=== PATIENT | male | born 1990 | race Caucasian/White ===

== ENCOUNTER 2017-07-26 11:48 | Emergency (ER) | payer MEDICAID ==
[2017-07-26] MEDS ORDERED: IBUPROFEN 600 MG TABLET PO ONE (11:59)
--- NOTE | 2017-07-26 12:04 | Emergency Department Record ---
History of Present Illness - General Chief complaint: Extremity Problem Stated complaint: LEFT WRIST INJURY Time Seen by Provider: 07/26/17 11:59 Source: Patient Mode of Arrival: Ambulatory Limitations: No limitations - History of Present Illness Initial comments: 27 yo male presents with left wrist pain since last night, He was riding his skate board and hit a rock. He fell off his skateboard and landed on his left wrist. No abrasions or laceration. He has left ulnar side wrist pain. No deformity. No history of prior left wrist fracture. He is right handed. MD Complaint: Extremity pain, Joint pain -: Days(s) (1) Location: Left History of Same: Yes -: Yes Arthralgia Radiation: Distal Quality: Aching Consistency: Constant Improves with: Immobilization Worsens with: Palpation, Weight bearing Associated Symptoms: Denies other symptoms - Related Data Home Medications Medication Instructions Recorded Confirmed Last Taken No Home Med [NO HOME MEDS] 07/26/17 07/26/17 Unknown Allergies Allergy/AdvReac Type Severity Reaction Status Date / Time morphine Allergy RASH Verified 06/14/16 17:09 ibuprofen AdvReac NAUSEA Verified 06/14/16 17:09 Review of Systems Constitutional: Denies: Chills, Fever, Malaise, Weakness Eyes: Denies: Eye discharge ENT: Denies: Congestion, Throat pain Respiratory: Denies: Cough Cardiovascular: Denies: Chest pain, Syncope Endocrine: Denies: Fatigue Gastrointestinal: Denies: Abdominal pain, Diarrhea, Nausea, Vomiting Genitourinary: Denies: Dysuria, Frequency Musculoskeletal: Reports: As per HPI, Arthralgia, Joint swelling, Myalgia. Denies: Back pain, Neck pain Skin: Denies: Bruising, Change in color, Rash Neurological: Denies: Confusion, Headache, Numbness, Vertigo, Weakness Psychiatric: Denies: Anxiety Hematological/Lymphatic: Denies: Blood Clots, Easy bleeding, Easy bruising, Swollen glands Past Medical History - SOCIAL HISTORY Smoking Status: Current every day smoker Drug Use Detail:: Marijuana - RESPIRATORY Hx Respiratory Disorders: No - CARDIOVASCULAR Hx Cardio Disorders: No - NEURO Hx Neuro Disorders: No - GI Hx GI Disorders: No - Hx Genitourinary Disorders: No - ENDOCRINE Hx Endocrine Disorders: No - MUSCULOSKELETAL Hx Musculoskeletal Disorders: No - PSYCH Hx Psych Problems: Yes Hx Anxiety: Yes Hx Depression: Yes - HEMATOLOGY/ONCOLOGY Hx Hematology/Oncology Disorders: No Family Medical History Hx Cancer: Father Hx Stroke: Mother Physical Exam - General General Appearance: Alert, Oriented x3, Cooperative, No acute distress Limitations: No limitations - Head Head exam: Atraumatic, Normocephalic, Normal inspection - Eye Eye exam: Normal appearance. negative: Conjunctival injection, Scleral icterus - ENT ENT exam: Normal exam, Mucous membranes moist Ear exam: Normal external inspection Nasal Exam: Normal inspection Mouth exam: Normal external inspection - Neck Neck exam: Normal inspection, Full ROM. negative: Tenderness - Respiratory Respiratory exam: Normal lung sounds bilaterally. negative: Respiratory distress - Cardiovascular Cardiovascular Exam: Regular rate, Normal rhythm, Normal heart sounds Peripheral Pulses: 2+: Radial (L) - Rectal Rectal exam: Deferred - exam: Deferred - Extremities Extremities exam: Normal inspection, Full ROM, Normal capillary refill, Tenderness Image of Hand: 1 - tender ulnar side, no swelling, no warmth, no redness, no abrasion - Back Back exam: Reports: Full ROM. Denies: CVA tenderness (R), CVA tenderness (L), Muscle spasm, Tenderness - Neurological Neurological exam: Alert, Normal gait, Oriented X3, Reflexes normal - Psychiatric Psychiatric exam: Normal affect, Normal mood. negative: Agitated, Anxious - Skin Skin exam: Dry, Intact, Normal color, Warm Course - Reevaluation(s) Reevaluation #1: 07/26/17 12:03 XR ordered of the left wrist 07/26/17 12:22 The XR was reviewed No visible displaced fracture or dislocation The patient was placed in a wrist splint He was given instructions of RICE We discussed follow up and reasons to return Disposition Disposition: Discharge Clinical Impression: Left wrist sprain Qualifiers: Encounter type: initial encounter Qualified Code(s): S63.502A - Unspecified sprain of left wrist, initial encounter Disposition: Home, Self-Care Condition: (1) Good Instructions: Wrist Sprain (ED) Additional Instructions: Ice and elevate to minimize swelling Use the splint for support and comfort Follow up in the next one week if any pain persists Forms: Patient Portal Access Time of Disposition: 12:23 Quality - Quality Measures Quality Measures: N/A - Blood Pressure Screening Does Patient Have Any of the Following: No Blood Pressure Classification: Pre-Hypertensive BP Reading Systolic Measurement: 131 Diastolic Measurement: 81 Screening for High Blood Pressure: < Pre-Hypertensive BP, F/U Documented > [ G8950] Pre-Hypertensive Follow-up Interventions: Referral to alternative/primary care provider.
--- NOTE | 2017-07-27 07:54 | RADIOLOGY REPORT ---
EXAM: LEFT WRIST HISTORY: INJURY. TECHNIQUE: Three views of the left wrist were performed. FINDINGS: No evidence of fracture or dislocation. No lytic or blastic lesion. IMPRESSION: NEGATIVE LEFT WRIST EXAMINATION. [facility]OB [facility]BER: [id number] [facility]
== END 2017-07-26 12:35 | disposition home or self-care (01) ==
LOC: ER 11:48
DX: S63.502A Unspecified sprain of left wrist, initial encounter (principal); V00.131A Fall from skateboard, initial encounter
CPT/HCPCS: 99283

== ENCOUNTER 2018-04-03 18:48 | Emergency (ER) | payer MEDICAID ==
--- NOTE | 2018-04-03 19:04 | Emergency Department Record ---
History of Present Illness - General Stated Complaint: RIB INJURY Time Seen by Provider: 04/03/18 19:00 Source: Patient Mode of Arrival: Ambulatory Limitations: No limitations - History of Present Illness Initial comments: 27 yo male presents to ED for evaluation of pain to the right anterior lower ribs following injury approximately 4 weeks ago that occurred while wrestling with a friend. Patient reports swelling and discomfort to that area that has persisted, denies shortness of breath or health problems at his baseline. Onset/Timin -: Week(s) Location: Right, Chest Radiation: Non-Radiating Quality: Aching Consistency: Constant Improves with: None Worsens with: Movement, Other (palpation) Associated Symptoms: Denies other symptoms Treatments Prior to Arrival: None - Felicity Coma Scale Eye Response: (4) Open spontaneously Motor Response: (6) Obeys commands Verbal Response: (5) Oriented Felicity Total: 15 - Related Data Allergies Allergy/AdvReac Type Severity Reaction Status Date / Time morphine Allergy RASH Verified 04/03/18 19:11 ibuprofen AdvReac NAUSEA Verified 04/03/18 19:11 Review of Systems Constitutional: Denies: Chills, Fever, Malaise, Night sweats Eyes: Denies: Eye discharge, Eye pain ENT: Denies: Congestion, Ear pain, Epistaxis Respiratory: Denies: Cough, Dyspnea, Hemoptysis Cardiovascular: Reports: Chest pain (right anterior rib pain). Denies: Dyspnea on exertion Endocrine: Denies: Fatigue, Heat or cold intolerance Gastrointestinal: Denies: Abdominal pain, Nausea, Vomiting Genitourinary: Denies: Testicular pain, Testicular mass Musculoskeletal: Denies: Arthralgia, Back pain, Gout, Joint swelling Skin: Denies: Bruising, Change in color Neurological: Denies: Abnormal gait, Confusion, Headache Psychiatric: Denies: Anxiety Hematological/Lymphatic: Denies: Anemia, Blood Clots Past Medical History - SOCIAL HISTORY Smoking Status: Current every day smoker Drug Use Detail:: Marijuana - RESPIRATORY Hx Respiratory Disorders: No - CARDIOVASCULAR Hx Cardio Disorders: No - NEURO Hx Neuro Disorders: No - GI Hx GI Disorders: No - Hx Genitourinary Disorders: No - ENDOCRINE Hx Endocrine Disorders: No - MUSCULOSKELETAL Hx Musculoskeletal Disorders: No - PSYCH Hx Psych Problems: Yes Hx Anxiety: Yes Hx Depression: Yes - HEMATOLOGY/ONCOLOGY Hx Hematology/Oncology Disorders: No Family Medical History Hx Cancer: Father Hx Stroke: Mother Physical Exam - General General Appearance: Alert, Oriented x3, Cooperative, Mild distress Limitations: No limitations - Head Head exam: Atraumatic, Normocephalic, Normal inspection Head exam detail: negative: Abrasion, Contusion, Bobo's sign, General tenderness, Hematoma, Laceration - Eye Eye exam: Normal appearance. negative: Conjunctival injection, Periorbital swelling, Periorbital tenderness, Scleral icterus - ENT Ear exam: negative: Auricular hematoma, Auricular trauma Nasal Exam: negative: Active bleeding, Discharge, Dried blood, Foreign body Mouth exam: negative: Drooling, Laceration, Muffled voice, Tongue elevation - Neck Neck exam: Normal inspection. negative: Meningismus, Tenderness - Respiratory Respiratory exam: Normal lung sounds bilaterally, Chest wall tenderness (TTP over the right anterior lower ribs (11/12 region) with mild STS present). negative: Decreased breath sounds, Rhonchi, Stridor, Wheezes - Cardiovascular Cardiovascular Exam: Regular rate, Normal rhythm, Normal heart sounds - GI/Abdominal GI/Abdominal exam: Soft. negative: Rebound, Rigid, Tenderness - Rectal Rectal exam: Deferred - exam: Deferred - Extremities Extremities exam: Normal inspection. negative: Calf tenderness, Pedal edema, Tenderness - Back Back exam: Denies: CVA tenderness (R), CVA tenderness (L) - Neurological Neurological exam: Alert, Normal gait, Oriented X3 - Psychiatric Psychiatric exam: Normal affect, Normal mood - Skin Skin exam: Normal color. negative: Abrasion Type of lesion: negative: abrasion Course Vital Signs 04/03/18 18:55 Temperature 98.7 F Pulse Rate [ 76 Pulse Ox Probe] Respiratory 15 Rate Blood Pressure 136/88 [Left Arm] Pulse Ox 98 - Reevaluation(s) Reevaluation #1: 04/03/18 20:23 Ribs/CXR: Calcification of the 8th rib at the costochondral junction May related to healing fracture Patient was updated on his result, recommended continued symptomatic care at home as directed. Patient verbalizes understanding of all instructions and appears stable for discharge at this time. Disposition Disposition: Discharge Clinical Impression: Contusion of rib on right side Qualifiers: Encounter type: initial encounter Qualified Code(s): S20.211A - Contusion of right front wall of thorax, initial encounter Rib fracture Qualifiers: Encounter type: initial encounter Rib fracture type: single rib Fracture type: closed Laterality: right Qualified Code(s): S22.31XA - Fracture of one rib, right side, initial encounter for closed fracture Disposition: Home, Self-Care Condition: (2) Stable Instructions: Rib Contusion (ED) Additional Instructions: Return to ED if your symptoms worsen or if you have any concerns. Ibuprofen as directed. Follow-up with your family doctor in 5-7 days for further evaluation. Time of Disposition: 20:24 Quality - Quality Measures Quality Measures: N/A - Blood Pressure Screening Does Patient Have Any of the Following: No Blood Pressure Classification: Pre-Hypertensive BP Reading Systolic Measurement: 136 Diastolic Measurement: 88 Screening for High Blood Pressure: < Pre-Hypertensive BP, F/U Documented > [ G8950] Pre-Hypertensive Follow-up Interventions: Referral to alternative/primary care provider.
--- NOTE | 2018-04-05 08:37 | RADIOLOGY REPORT ---
EXAM: RIGHT RIBS WITH PA CHEST HISTORY: PAINFUL LUMP IN THE ANTERIOR LOWER RIGHT RIB REGION POST TRAUMA ONE MONTH AGO. TECHNIQUE: AP and oblique views of the right ribs are obtained as well as an upright PA view of the chest. Comparison: None. FINDINGS: There is normal bone mineralization. No definite acute right rib fracture is seen though there is calcific density projecting lateral to the right eighth costochondral junction which appears somewhat irregular. There is mild overlying smooth soft tissue deformity. This may relate to healing of costochondral junction injury. No other osseous abnormality identified. The cardiomediastinal silhouette is normal in size and configuration. The pulmonary vasculature is nondilated. The lungs and pleural spaces are clear. IMPRESSION: 1. NO DEFINITE ACUTE RIGHT RIB FRACTURE IDENTIFIED. 2. ILL DEFINED CALCIFIC DENSITY NOTED LATERAL TO THE RIGHT EIGHTH COSTOCHONDRAL JUNCTION WITH SLIGHT DEFORMITY OF THE OVERLYING SOFT TISSUE. THIS MAY RELATE TO HEALING OF COSTOCHONDRAL JUNCTION INJURY. A NEOPLASTIC PROCESS IS LESS LIKELY. NO EVIDENCE OF ACUTE CARDIOPULMONARY DISEASE. JOB NUMBER: [id number] AND [id number] [facility]
== END 2018-04-03 20:28 | disposition home or self-care (01) ==
LOC: ER 18:48
DX: S22.31XA Fracture of one rib, right side, initial encounter for closed fracture (principal); S20.211A Contusion of right front wall of thorax, initial encounter; Y93.72 Activity, wrestling; F17.210 Nicotine dependence, cigarettes, uncomplicated
CPT/HCPCS: 99283

== ENCOUNTER 2018-07-19 22:16 | Emergency (ER) | payer MEDICAID ==
--- NOTE | 2018-07-19 22:39 | Emergency Department Record ---
History of Present Illness - General Chief complaint: Dental Stated complaint: DENTAL PAIN Time Seen by Provider: 07/19/18 22:34 Source: Patient Mode of Arrival: Ambulatory Limitations: No limitations - History of Present Illness Initial comments: 28 yo male presents to ED for evaluation of dental pain to the upper posterior dental region. Patient reports that his dentist "broke the affected tooth off" while attempting to remove an adjacent tooth recently. Patient reports pain symptoms and inability to sleep, reports he has been taking Tylenol as needed without improvement. Patient denies health problems at his baseline. MD complaint: Tooth pain Onset/Timin -: Days(s) Location: Tooth # 1 - dental pain, swelling Severity: Severe Quality: Aching Consistency: Constant Improves with: None Worsens with: None Context-Epistaxis: History of similar Context- Dental: History of dental caries - Related Data Previous Rx's Medication Instructions Recorded Penicillin V Potassium 500 mg PO QID #28 tablet 07/19/18 Allergies Allergy/AdvReac Type Severity Reaction Status Date / Time morphine Allergy RASH Verified 04/03/18 19:11 ibuprofen AdvReac NAUSEA Verified 04/03/18 19:11 Review of Systems Constitutional: Denies: Chills, Fever, Malaise, Night sweats Eyes: Denies: Eye discharge, Eye pain ENT: Reports: Dental pain. Denies: Ear pain, Epistaxis Respiratory: Denies: Cough, Dyspnea Cardiovascular: Denies: Chest pain, Dyspnea on exertion Endocrine: Denies: Fatigue, Heat or cold intolerance Gastrointestinal: Denies: Abdominal pain, Nausea, Vomiting Genitourinary: Denies: Incontinence, Retention Musculoskeletal: Denies: Arthralgia, Back pain, Gout, Joint swelling Skin: Denies: Bruising, Change in color Neurological: Reports: Headache (From his tooth). Denies: Abnormal gait, Confusion, Seizure Psychiatric: Denies: Anxiety Hematological/Lymphatic: Denies: Anemia, Blood Clots Past Medical History - SOCIAL HISTORY Smoking Status: Current every day smoker Drug Use Detail:: Marijuana - RESPIRATORY Hx Respiratory Disorders: No - CARDIOVASCULAR Hx Cardio Disorders: No - NEURO Hx Neuro Disorders: No - GI Hx GI Disorders: No - Hx Genitourinary Disorders: No - ENDOCRINE Hx Endocrine Disorders: No - MUSCULOSKELETAL Hx Musculoskeletal Disorders: No - PSYCH Hx Psych Problems: Yes Hx Anxiety: Yes Hx Depression: Yes - HEMATOLOGY/ONCOLOGY Hx Hematology/Oncology Disorders: No Family Medical History Hx Cancer: Father Hx Stroke: Mother Physical Exam - General General Appearance: Alert, Oriented x3, Cooperative, Moderate distress Limitations: No limitations - Head Head exam: Atraumatic, Normocephalic, Normal inspection Head exam detail: negative: Abrasion, Contusion, Bobo's sign, General tenderness, Hematoma, Laceration - Eye Eye exam: Normal appearance. negative: Conjunctival injection, Periorbital swelling, Periorbital tenderness, Scleral icterus - ENT Ear exam: negative: Auricular hematoma, Auricular trauma Nasal Exam: negative: Active bleeding, Discharge, Dried blood, Foreign body Mouth exam: negative: Drooling, Laceration, Muffled voice, Tongue elevation Teeth exam: Dental caries, Dental tenderness #. negative: Gingival enlargement Throat exam: negative: Tonsillar erythema, Tonsillomegaly, R peritonsillar mass , L peritonsillar mass Image of Mouth/Teeth: 1 - Dental caries with gingival STS - Neck Neck exam: Normal inspection. negative: Meningismus, Tenderness - Respiratory Respiratory exam: Normal lung sounds bilaterally. negative: Rales, Respiratory distress, Rhonchi, Stridor - Cardiovascular Cardiovascular Exam: Regular rate, Normal rhythm, Normal heart sounds - GI/Abdominal GI/Abdominal exam: Soft. negative: Rebound, Rigid, Tenderness - Rectal Rectal exam: Deferred - exam: Deferred - Extremities Extremities exam: Normal inspection. negative: Calf tenderness, Pedal edema, Tenderness - Back Back exam: Denies: CVA tenderness (R), CVA tenderness (L) - Neurological Neurological exam: Alert, Normal gait, Oriented X3 - Psychiatric Psychiatric exam: Normal affect, Normal mood - Skin Skin exam: Normal color. negative: Abrasion Type of lesion: negative: abrasion Course Vital Signs 07/19/18 22:28 Temperature 98.6 F Pulse Rate [ 91 H Pulse Ox Probe] Respiratory 20 Rate Blood Pressure 160/109 [Left Arm] Pulse Ox 98 - Reevaluation(s) Reevaluation #1: 07/19/18 23:04 Procedure Note: 1.0 cm gingival abscess affecting the left upper gingival region was anesthetized with 1.5 mL of 0.25% sensorcaine with good anesthesia. The lesion was then incised with a #11 blade with moderate amount of purulent drainage removed. Patient tolerated the procedure well without complications. Pain symptoms are greatly improved following dental block and I&D. Patient was started on Penicillin VK with instructions for dental follow-up. Procedures - Nerve Block Consent Obtained: Verbal consent Time Out Performed: Yes Local Anesthetic Used: Marcaine 0.25% Side: Right Intraoral Nerve Block: Superior alveolar Procedure Successful: Yes Complications: None Patient Tolerated Procedure: Good Disposition Disposition: Discharge Clinical Impression: Dental caries, Gingival abscess Disposition: Home, Self-Care Condition: (2) Stable Instructions: Dental Abscess (ED) Additional Instructions: Return to ED if your symptoms worsen or if you have any concerns. Penicillin VK as directed. Follow-up with your dentist in 3-5 days as directed. Prescriptions: Penicillin V Potassium 500 mg PO QID #28 tablet Forms: Patient Portal Access Time of Disposition: 22:39 Quality - Quality Measures Quality Measures: N/A - Blood Pressure Screening Does Patient Have Any of the Following: No Blood Pressure Classification: Hypertensive Reading Systolic Measurement: 160 Diastolic Measurement: 109 Screening for High Blood Pressure: < First Hypertensive BP, F/U Documented > [ G8950] First Hypertensive Follow-up Interventions: Referral to alternative/primary care provider.
[2018-07-19] MEDS ORDERED: PENICILLIN V POTASSIUM 250 MG TAB PO ONE (23:04)
[2018-07-19] MEDS ORDERED: HYDROCODONE/APAP 10/325 TABLET PO ONE (23:11)
== END 2018-07-19 23:16 | disposition home or self-care (01) ==
LOC: ER 22:16
DX: K05.219 Aggressive periodontitis, localized, unspecified severity (principal); K02.9 Dental caries, unspecified; F17.210 Nicotine dependence, cigarettes, uncomplicated
CPT/HCPCS: 99284 ×2; 41800; J3490

== ENCOUNTER 2018-08-24 08:19 | Emergency (ER) | payer MEDICAID ==
--- NOTE | 2018-08-24 08:39 | Emergency Department Record ---
History of Present Illness - General Chief complaint: Dental Stated complaint: RT SIDE FACE SWOLLEN Time Seen by Provider: 08/24/18 08:28 Source: Patient Mode of Arrival: Ambulatory - History of Present Illness Initial comments: swollen upper face area and painful last molar and second to the last molar and couple months ago had a tooth ache and last time to [facility] more than 6 months ago and he had toothache 2 months ago but never followed up with the dentist. MD complaint: Tooth pain Onset/Timin -: Days(s) Severity: Moderate Severity scale (1-10): 8 Quality: Aching Consistency: Constant - Related Data Previous Rx's Medication Instructions Recorded Cephalexin [Keflex] 500 mg PO QID #40 cap 08/24/18 Naproxen [Naprosyn] 500 mg PO BID #20 tablet 08/24/18 Allergies Allergy/AdvReac Type Severity Reaction Status Date / Time morphine Allergy RASH Verified 08/24/18 08:28 ibuprofen AdvReac NAUSEA Verified 08/24/18 08:28 Travel Screening - Travel/Exposure Within Last 30 Days Have you traveled within the last 30 days?: No - Travel/Exposure Within Last Year Have you traveled outside the [place] in the last year?: No - Additonal Travel Details Have you been exposed to anyone with a communicable illness?: No - Travel Symptoms Symptom Screening: None Review of Systems Reviewed: No additional complaints except as noted below Constitutional: Reports: As per HPI. Denies: Chills, Fever, Malaise, Night sweats, Weakness, Weight change Eyes: Reports: As per HPI. Denies: Eye discharge, Eye pain, Photophobia, Vision change ENT: Reports: As per HPI, Dental pain, Other (swelling). Denies: Congestion, Ear pain, Epistaxis, Hearing loss, Throat pain Respiratory: Reports: As per HPI. Denies: Cough, Dyspnea, Hemoptysis, Stridor, Wheezes Cardiovascular: Reports: As per HPI. Denies: Arrhythmia, Chest pain, Dyspnea on exertion, Edema, Murmurs, Orthopnea, Palpitations, Paroxysmal nocturnal dyspnea, Rheumatic Fever, Syncope Endocrine: Reports: As per HPI. Denies: Fatigue, Heat or cold intolerance, Polydipsia, Polyuria Gastrointestinal: Reports: As per HPI. Denies: Abdominal pain, Constipation, Diarrhea, Hematemesis, Hematochezia, Melena, Nausea, Vomiting Genitourinary: Reports: As per HPI. Denies: Dysuria, Frequency, Hematuria, Incontinence, Retention, Testicular pain, Testicular mass, Urgency Musculoskeletal: Reports: As per HPI. Denies: Arthralgia, Back pain, Gout, Joint swelling, Myalgia, Neck pain Skin: Reports: As per HPI. Denies: Bruising, Change in color, Change in hair/ nails, Lesions, Pruritus, Rash Neurological: Reports: As per HPI. Denies: Abnormal gait, Confusion, Headache, Numbness, Paresthesias, Seizure, Tingling, Tremors, Vertigo, Weakness Psychiatric: Reports: As per HPI. Denies: Anxiety, Auditory hallucinations, Depression, Homicidal thoughts, Suicidal thoughts, Visual hallucinations Hematological/Lymphatic: Reports: As per HPI. Denies: Anemia, Blood Clots, Easy bleeding, Easy bruising, Swollen glands Past Medical History - SOCIAL HISTORY Smoking Status: Current every day smoker Alcohol Use: Rare, Occasional Drug Use: Rare, Occasional Drug Use Detail:: Marijuana - RESPIRATORY Hx Respiratory Disorders: No - CARDIOVASCULAR Hx Cardio Disorders: No - NEURO Hx Neuro Disorders: No - GI Hx GI Disorders: No - Hx Genitourinary Disorders: No - ENDOCRINE Hx Endocrine Disorders: No - MUSCULOSKELETAL Hx Musculoskeletal Disorders: No - PSYCH Hx Psych Problems: Yes Hx Anxiety: Yes Hx Depression: Yes - HEMATOLOGY/ONCOLOGY Hx Hematology/Oncology Disorders: No Family Medical History Any Significant Family History?: Yes Hx Cancer: Father Hx Stroke: Mother Physical Exam - General General Appearance: Alert, Oriented x3, Cooperative, No acute distress - Head Head exam: Other (swelling right cheek area) - Eye Eye exam: Normal appearance, PERRL Pupils: Normal accommodation - ENT ENT exam: Normal exam, Mucous membranes moist, Normal external ear exam, Normal orophraynx, TM's normal bilaterally Ear exam: Normal external inspection. negative: External canal tenderness Nasal Exam: Normal inspection. negative: Discharge, Sinus tenderness Mouth exam: Normal external inspection, Tongue normal Teeth exam: Dental caries, Dental tenderness #, Other (swelling right cheek) Throat exam: Normal inspection. negative: Tonsillar erythema, Tonsillar exudate Image of Mouth/Teeth: 1 - pain 2 - pain 3 - tooth pain - Neck Neck exam: Normal inspection, Full ROM. negative: Tenderness - Respiratory Respiratory exam: Normal lung sounds bilaterally. negative: Respiratory distress - Cardiovascular Cardiovascular Exam: Regular rate, Normal rhythm, Normal heart sounds - GI/Abdominal GI/Abdominal exam: Soft, Normal bowel sounds. negative: Tenderness - Rectal Rectal exam: Deferred - exam: Deferred - Extremities Extremities exam: Normal inspection, Full ROM, Normal capillary refill. negative: Tenderness - Back Back exam: Reports: Normal inspection, Full ROM. Denies: Muscle spasm, Rash noted, Tenderness - Neurological Neurological exam: Alert, Normal gait, Oriented X3, Reflexes normal - Psychiatric Psychiatric exam: Normal affect, Normal mood - Skin Skin exam: Dry, Intact, Normal color, Warm Course Vital Signs 08/24/18 08:24 Temperature 98.6 F Pulse Rate 100 H Respiratory 20 Rate Blood Pressure 152/89 Pulse Ox 98 - Reevaluation(s) Reevaluation #1: no pointing or infection on gum and last molar with decay and looks broken. 2nd to last molar with repairs and pain on percussion and pain on both last molars right upper teeth 08/24/18 08:47 Disposition Clinical Impression: Dental infection, Dental caries Condition: (1) Good Instructions: Dental Abscess (ED), Toothache (ED) Additional Instructions: follow up with dentist in 1-5 days warm water rinses of mouth ten times a day Prescriptions: Cephalexin [Keflex] 500 mg PO QID #40 cap Naproxen [Naprosyn] 500 mg PO BID #20 tablet Forms: Patient Portal Access Time of Disposition: 09:04 Quality - Quality Measures Quality Measures: N/A - Blood Pressure Screening Does Patient Have Any of the Following: No Blood Pressure Classification: Pre-Hypertensive BP Reading Systolic Measurement: 152 Diastolic Measurement: 89 Screening for High Blood Pressure: < Pre-Hypertensive BP, F/U Documented > [ G8950] Pre-Hypertensive Follow-up Interventions: Referral to alternative/primary care provider.
[2018-08-24] MEDS ORDERED: CEFTRIAXONE 250 MG VIAL IM ONE (08:41)
[2018-08-24] MEDS ORDERED: CEFTRIAXONE SODIUM 1 GM in 0.9 % SODIUM CHLORIDE 100ML 100 ML IVPB ONE (08:42)
[2018-08-24] MEDS ORDERED: CEFTRIAXONE SODIUM 2 GM in 0.9 % SODIUM CHLORIDE 100ML 100 ML IVPB ONE (09:02)
[2018-08-24] MEDS ORDERED: CEPHALEXIN 500 MG CAPSULE PO STA (09:43)
== END 2018-08-24 09:53 | disposition home or self-care (01) ==
LOC: ER 08:19
DX: K04.7 Periapical abscess without sinus (principal); K02.9 Dental caries, unspecified; R22.0 Localized swelling, mass and lump, head; F17.210 Nicotine dependence, cigarettes, uncomplicated
CPT/HCPCS: 96365; 99284

== ENCOUNTER 2019-07-03 05:11 | Emergency (ER) | payer MEDICAID ==
--- NOTE | 2019-07-03 05:24 | Emergency Department Record ---
History of Present Illness - General Chief Complaint: Chest Pain Stated Complaint: CHEST PAIN Time Seen by Provider: 07/03/19 05:12 Source: Patient Mode of Arrival: Ambulatory Limitations: No limitations - History of Present Illness Initial Comments: 29 yo male presents to ED for evaluation of chest pain that he awoke with 90 minutes ago. Patient reports that he felt fine when he went to bed last evening, denies fevers, chills, or cough symptoms. Patient reports pain with laying supine, also reports a history of marijuana use. Patient denies previous heart or lung problems at his baseline. MD Complaint: Chest pain Onset/Timin -: Minutes(s) Onset: Awoke with symptoms Pain Location: Substernal Pain Radiation: RUE Severity scale (1-10): 5 Quality: Other Consistency: Intermittent Improves With: Nothing Worsens With: Supine - Related Data Previous Rx's Medication Instructions Recorded Ibuprofen [Motrin] 800 mg PO Q6H PRN #30 tab 07/03/19 Allergies Allergy/AdvReac Type Severity Reaction Status Date / Time morphine Allergy RASH Verified 08/24/18 08:28 ibuprofen AdvReac NAUSEA Verified 08/24/18 08:28 Travel Screening - Travel/Exposure Within Last 30 Days Have you traveled within the last 30 days?: No - Travel/Exposure Within Last Year Have you traveled outside the [place] in the last year?: No - Additonal Travel Details Have you been exposed to anyone with a communicable illness?: No - Travel Symptoms Symptom Screening: None Review of Systems Constitutional: Denies: Chills, Fever, Malaise, Night sweats Eyes: Denies: Eye discharge, Eye pain ENT: Denies: Congestion, Ear pain, Epistaxis Respiratory: Denies: Cough, Dyspnea Cardiovascular: Reports: Chest pain. Denies: Dyspnea on exertion Endocrine: Denies: Fatigue, Heat or cold intolerance Gastrointestinal: Denies: Abdominal pain, Nausea, Vomiting Genitourinary: Denies: Incontinence, Retention Skin: Denies: Bruising, Change in color Neurological: Denies: Abnormal gait, Confusion, Headache, Seizure Psychiatric: Denies: Anxiety Hematological/Lymphatic: Denies: Anemia, Blood Clots Past Medical History - SOCIAL HISTORY Smoking Status: Current every day smoker Alcohol Use: Occasional Drug Use: Heavy Drug Use Detail:: Marijuana - RESPIRATORY Hx Respiratory Disorders: Yes Hx Bronchitis: Yes - CARDIOVASCULAR Hx Cardio Disorders: No - NEURO Hx Neuro Disorders: No - GI Hx GI Disorders: No - Hx Genitourinary Disorders: No - ENDOCRINE Hx Endocrine Disorders: No - MUSCULOSKELETAL Hx Musculoskeletal Disorders: No - PSYCH Hx Psych Problems: Yes Hx Anxiety: Yes Hx Depression: Yes - HEMATOLOGY/ONCOLOGY Hx Hematology/Oncology Disorders: No Family Medical History Any Significant Family History?: Yes Hx Cancer: Father Hx Stroke: Mother Physical Exam - General General Appearance: Alert, Oriented x3, Cooperative, Mild distress Limitations: No limitations - Head Head exam: Atraumatic, Normocephalic, Normal inspection Head exam detail: negative: Abrasion, Contusion, Bobo's sign, General tenderness, Hematoma, Laceration - Eye Eye exam: Normal appearance. negative: Conjunctival injection, Periorbital swelling, Periorbital tenderness, Scleral icterus - ENT Ear exam: negative: Auricular hematoma, Auricular trauma Nasal Exam: negative: Active bleeding, Discharge, Dried blood, Foreign body Mouth exam: negative: Drooling, Laceration, Muffled voice, Tongue elevation - Neck Neck exam: Normal inspection. negative: Meningismus, Tenderness - Respiratory Respiratory exam: Normal lung sounds bilaterally. negative: Rales, Respiratory distress, Rhonchi, Stridor - Cardiovascular Cardiovascular Exam: Regular rate, Normal rhythm, Normal heart sounds - GI/Abdominal GI/Abdominal exam: Soft. negative: Rebound, Rigid, Tenderness - Rectal Rectal exam: Deferred - exam: Deferred - Extremities Extremities exam: Normal inspection. negative: Pedal edema, Tenderness - Back Back exam: Denies: CVA tenderness (R), CVA tenderness (L) - Neurological Neurological exam: Alert, Normal gait, Oriented X3 - Psychiatric Psychiatric exam: Anxious - Skin Skin exam: Normal color. negative: Abrasion Type of lesion: negative: abrasion Course Vital Signs 07/03/19 05:16 Temperature 98.3 F Pulse Rate [ 78 Left] Respiratory 20 Rate Blood Pressure 135/99 [Left] Pulse Ox 99 - Reevaluation(s) Reevaluation #1: 07/03/19 05:23 EKG: NSR 82 Normal axis, normal intervals J-point elevation present, no acute changes PERC Rule: PERC clinical decision rule was applied, and the patient does not have any of the following: -Age > 50 years -Pulse > 100 -Oxygen Saturation < 94% -History of Hemoptysis -Unilateral leg swelling -History or PE/DVT -Recent surgery or Trauma -Oral contraceptive/Hormone use Reevaluation #2: 07/03/19 06:08 Laboratory studies were reviewed and appear grossly unremarkable for an acute process. No evidence for pericarditis/myocarditis. CXR: No acute process Patient reports that his pain symptoms are greatly improved (3/10 currently), reports that he is feeling much better. History and examination appear c/w possible costochondritis/pleurisy, recommended NSAIDs as directed for treatment of his pain symptoms. Patient is in agreement with the plan of care as discussed, and appears stable for discharge at this time. Medical Decision Making - Lab Data Result diagrams: 07/03/19 05:20 07/03/19 05:20 Disposition Disposition: Discharge Clinical Impression: Costochondritis, acute Disposition: Home, Self-Care Condition: (2) Stable Instructions: Costochondritis (ED) Additional Instructions: Return to ED if your symptoms worsen or if you have any concerns. Motrin 800 mg as directed. Follow-up with your family doctor in 3-5 days as directed. Prescriptions: Ibuprofen [Motrin] 800 mg PO Q6H PRN #30 tab PRN Reason: Pain - Mod To Severe (5-10) Forms: Patient Portal Access Time of Disposition: 06:20 Quality - Quality Measures Quality Measures: N/A - Blood Pressure Screening Does Patient Have Any of the Following: No Blood Pressure Classification: Pre-Hypertensive BP Reading Systolic Measurement: 130 Diastolic Measurement: 85 Screening for High Blood Pressure: < Pre-Hypertensive BP, F/U Documented > [G8950] Pre-Hypertensive Follow-up Interventions: Referral to alternative/primary care provider.
[2019-07-03] MEDS ORDERED: KETOROLAC 30 MG/ML VIAL IVP ONE (05:27)
[2019-07-03 05:38] LABS: ABSOLUTE NEUTROPHIL COUNT 4.46; BASO % 0.4 % (0-6); EOS % 3.7 % (0-6); GRAN % 53.6 % (47-80); HEMOGLOBIN 16.2 gm/dl (14.0-18.0); LYMPH % 33.6 % (16-45); MEAN CELL VOLUME 99.4 fl (81-97); MEAN CORPUSCULAR HEMOGLOBIN 32.9 pg (27-33); MEAN CORPUSCULAR HGB CONC 33.1 g/dl (32-36); MEAN PLATELET VOLUME 9.5 fl (7.4-10.4); MONO % 8.7 % (0-9); PLATELET COUNT 297 K/uL (130-400); RED BLOOD COUNT 4.93 M/uL (4.40-5.70); WHITE BLOOD COUNT W/O DIFF 8.3 K/uL (4.2-12.2)
[2019-07-03] MEDS ORDERED: 0.9 % SODIUM CHLORIDE 1000ML 1,000 ML IV SCH (05:45)
[2019-07-03 05:50] LABS: BLOOD UREA NITROGEN 16 mg/dL (6-20); CREATININE 1.2 mg/dL (0.7-1.2); EST GLOMERULAR FILTRATION RATE > 60 mL/min
[2019-07-03 05:51] LABS: TOTAL PROTEIN 7.2 g/dL (6.6-8.7)
[2019-07-03 05:53] LABS: GLUCOSE,RANDOM 102 mg/dL (74-109)
[2019-07-03 05:56] LABS: ALBUMIN 4.8 g/dL (4.0-5.0); ALKALINE PHOSPHATASE 105 U/L (40-129); ALT/SGPT 27 U/L (<41); AST/SGOT 21 U/L (10.0-50.0); C-REACTIVE PROTEIN 0.14 mg/dL (<0.5); CREATINE PHOSPHOKINASE 251 U/L (39-308)
--- NOTE | 2019-07-03 06:18 | RADIOLOGY REPORT ---
EXAMINATION: Two View Chest Radiographs EXAM DATE: 07/03/2019 5:51 AM TECHNIQUE: Frontal and lateral views INDICATION: chest pain COMPARISON: None ENCOUNTER: Not applicable FINDINGS: Cardiac size is normal. Lungs and pleural spaces are clear. No pneumothorax. IMPRESSION: Normal chest. Dictated by: Louise Colón MD on 07/03/2019 6:16 AM. .
[2019-07-03 07:01] LABS: ERYTHROCYTE SEDIMENTATION RATE 2 mm/hr (0-15)
== END 2019-07-03 06:33 | disposition home or self-care (01) ==
LOC: ER 05:11
DX: M94.0 Chondrocostal junction syndrome [Tietze] (principal); F17.210 Nicotine dependence, cigarettes, uncomplicated
CPT/HCPCS: 71046; 80053; 82550; 84484; 85025; 85651; 86140; 93005; 93010; 96374; 99284; J1885; J7030